=== PATIENT | male | born 1960 | race Caucasian/White ===

== ENCOUNTER 2019-12-05 12:20 | Inpatient (IN) ==
[2019-12-05] MEDS ORDERED: SODIUM CHLORIDE 0.9% 1,000 ML IV STA (12:50)
[2019-12-05 13:31] LABS: Eosinophils % 0.2 % (0.00-10.9); Hemoglobin 16.4 GM/DL (14.0-18.0); Immature Granulocytes % 0.4 %; Immature Granulocytes Absolute 0.02 #; Lymphocytes # 0.6 10*3/uL (1.4-4.0); Mean Corpuscular HGB Conc 35.7 GM/DL (32-36); Mean Corpuscular Volume 94.7 FL (87-102); Mean Platelet Volume 9.4 FL (9.6-12.0); Monocytes % 6.9 % (1.7-12.7); Neutrophils % 81.5 % (38.7-73.9); Platelet Count 156 T/CUMM (130-400); Red Blood Count 4.86 MC/CUMM (3.8-5.5); Red Cell Distribution Width 13.1 % (9.3-17.3); White Blood Count 5.5 T/CUMM (4-12)
[2019-12-05 14:03] LABS: Bilirubin,Total 0.5 MG/DL (0.2-1.0); Calcium 9.8 MG/DL (8.5-10.1); Osmolality,Calculated 289.4 MOS/KG (273-304); Total Protein 7.2 G/DL (6.4-8.3)
[2019-12-05] MEDS ORDERED: GLUCAGON 1 MG VIAL IM PRN (15:32)
[2019-12-05] MEDS ORDERED: DEXTROSE 50% 25 GM/50 ML VIAL IV PRN (15:32)
[2019-12-05] MEDS ORDERED: ONDANSETRON 4 MG/2 ML VIAL IV PRN (15:32)
[2019-12-05] MEDS ORDERED: NICOTINE 21 MG/24 HR PATCH TRANSDERM PRN (15:32)
[2019-12-05] MEDS ORDERED: MORPHINE 4 MG/1 ML VIAL IV PRN (15:32)
[2019-12-05] MEDS: SODIUM CHLORIDE 0.9% 1,000 ML IV SCH (19:01)
[2019-12-05] MEDS: ENOXAPARIN 40 MG/0.4 ML SYRINGE SUBCUT SCH (21:49)
[2019-12-06] MEDS: SODIUM CHLORIDE 0.9% 1,000 ML IV SCH (12:50)
[2019-12-06] MEDS: ENOXAPARIN 40 MG/0.4 ML SYRINGE SUBCUT SCH (20:47)
[2019-12-07] MEDS: MULTIVITAMIN (CENTRUM) TABLET PO SCH (08:30)
[2019-12-07] MEDS: SODIUM CHLORIDE 0.9% 1,000 ML IV SCH (10:00)
[2019-12-07] MEDS ORDERED: ALBUTEROL 2.5 MG/3 ML NEB RESP TX PRN (12:33)
[2019-12-07] MEDS ORDERED: fentaNYL 50 MCG/HR PATCH TRANSDERM SCH (13:00)
[2019-12-07] MEDS: BUDESONIDE/FORMOTEROL 160-4.5 INHALER 6 GM INH SCH (22:12)
[2019-12-07] MEDS: ENOXAPARIN 40 MG/0.4 ML SYRINGE SUBCUT SCH (22:12)
[2019-12-08] MEDS: SODIUM CHLORIDE 0.9% 1,000 ML IV SCH (06:15)
[2019-12-08] MEDS ORDERED: LEVOTHYROXINE 150 MCG TABLET PO SCH (06:30)
[2019-12-08] MEDS ORDERED: TUBERCULIN SKIN TEST 0.1 ML SYRINGE INTRADERM ONE (07:57)
[2019-12-08] MEDS: MULTIVITAMIN (CENTRUM) TABLET PO SCH ×2 (08:10→08:47)
[2019-12-08] MEDS: METOPROLOL SUCCINATE XL 100 MG TABLET PO SCH ×2 (08:10→08:47)
[2019-12-08] MEDS: LEVOTHYROXINE 150 MCG TABLET PO SCH (08:11)
[2019-12-08] MEDS: BUDESONIDE/FORMOTEROL 160-4.5 INHALER 6 GM INH SCH ×2 (08:46→22:57)
[2019-12-08] MEDS: ENOXAPARIN 40 MG/0.4 ML SYRINGE SUBCUT SCH (22:57)
[2019-12-09] MEDS: SODIUM CHLORIDE 0.9% 1,000 ML IV SCH (08:50)
[2019-12-09] MEDS: LEVOTHYROXINE 150 MCG TABLET PO SCH (10:34)
[2019-12-09] MEDS: MULTIVITAMIN (CENTRUM) TABLET PO SCH (10:34)
[2019-12-09] MEDS: BUDESONIDE/FORMOTEROL 160-4.5 INHALER 6 GM INH SCH (10:34)
[2019-12-09] MEDS: METOPROLOL SUCCINATE XL 100 MG TABLET PO SCH (10:34)
[2019-12-09 15:54] VITALS: BP 130/84
[2019-12-09] MEDS ORDERED: MORPHINE 4 MG/1 ML VIAL IV PRN (16:00)
[2019-12-09] MEDS ORDERED: LORazepam 2 MG/1 ML VIAL IV PRN (16:00)
== END 2019-12-09 20:26 | disposition expired | DRG 896 ==
LOC: EDBD → EDUNIT# → N.EDINP 12:20 → N.ED 12:20 → N.4E 17:59
PROVIDERS: ADMIT Hospitalist; ATTEND Hospitalist